=== PATIENT | male | born 1945 | race Caucasian/White ===

== ENCOUNTER 2019-08-26 06:47 | Day surgery (SDC) | payer MEDICARE, OTHER ==
[~2019-08-26 06:47] MED LIST: Lactated Ringers 1,000 ML IV SCH; Sodium Chloride 0.9% 10 ML Syringe FLUSH PRN
[2019-08-26] MEDS ORDERED: Propofol 200 MG/20 ML SDV IV ONE (06:48)
[2019-08-26] MEDS ORDERED: Lidocaine 2% 5 ML SDV INJECT ONE (06:48)
--- NOTE | 2019-08-26 08:46 | PCM.OPNOTE ---
- General Post-Op/Procedure Note Date of Surgery/Procedure: 08/26/19 Operative Procedure(s): EGD with Biopsy Findings: Mild inflammation of gastric antrum Normal appearing esophagus Pre Op Diagnosis: Abnormal esophagus on CT Scan Post-Op Diagnosis: Gastritis Anesthesia Technique: MAC Primary Surgeon: Gordon Franco Pathology: Biopsies of gastric antrum and esophagus EBL in mLs: 2 Complications: None Condition: Good
[2019-08-26 09:15] VITALS: BP 134/79; PULSE 62
--- NOTE | 2019-08-26 10:02 | HP ---
ADMISSION DATE: 08/26/2019 HISTORY OF PRESENT ILLNESS: This 74-year-old male presents today for upper endoscopy. He recently underwent a CT scan of the chest as part of a cardiac workup. This scan was interpreted as showing possible thickening of the upper portion of the wall of his esophagus. It is for this reason that he comes for a diagnostic upper endoscopy. The patient denies any pain in the throat or chest. He has not had any recent change in his voice nor is he having any difficulty breathing. He does not feel any symptoms of dysphagia nor does he have any heartburn. The patient does not require use of any acid blocking medication. PAST MEDICAL HISTORY: Does include a history of cardiac disease including valvular cardiac disease, but his only routine prescription medication is lisinopril. The patient also does take low-dose aspirin. ALLERGIES: He is allergic to bees, but no medications. PAST SURGICAL HISTORY: He has had previous surgery including tonsillectomy, colonoscopy, and joint replacement surgery. He has not required any cardiac procedures. FAMILY HISTORY: Negative for any known esophageal disease or esophageal cancer. SYSTEM REVIEW: Notes the patient has recently been feeling well with no difficulty breathing or chest pain and no change in appetite. He also denies any abdominal pain. PHYSICAL EXAMINATION: VITAL SIGNS: Temperature is 97.5, pulse 72, blood pressure is 144/65. GENERAL: The patient is alert adult male. He is in no acute distress. HEENT: Head is normocephalic. NECK: No cervical masses are noted. CHEST: He has no tenderness to palpation of the anterior chest wall. No masses are identified. HEART: Regular. LUNGS: Clear. ABDOMEN: Soft, nontender. No palpable masses noted. IMPRESSION: Possible esophageal wall thickening on CT scan. PLAN: Upper endoscopy. INFORMED CONSENT: I have discussed the proposed upper endoscopy with the patient, reviewed the proposed procedure. He agrees to proceed accepting risks. /[id number]/KRISTIN
--- NOTE | 2019-08-26 10:22 | OR ---
DATE OF OPERATION: 08/26/2019 SURGEON: Gordon Franco MD PREOPERATIVE DIAGNOSIS: Abnormal esophagus on CT scan. POSTOPERATIVE DIAGNOSIS: Gastritis and normal esophagus. OPERATION PERFORMED: Esophagogastroduodenoscopy with biopsy. INDICATIONS FOR SURGERY: This 74-year-old male underwent a CT scan of the chest for an unrelated problem and was noted to have findings consistent with thickening of the wall of the upper esophagus. Even though the patient is asymptomatic, diagnostic upper endoscopy is planned. FINDINGS: The mucosa of the esophagus appeared normal throughout its entire length. There was no indication of intrinsic or extrinsic mass identified. The Z-line was distinct. The gastric mucosa did reveal some hyperemia in the antrum. No ulcer was seen. The remainder of the gastric mucosa was normal. The duodenum appeared normal. PROCEDURE IN DETAIL: The patient was taken to the procedure room. He was given intravenous sedation, and with him in the left lateral decubitus position, the gastroscope was advanced through a mouth guard into the oral cavity. Under direct visualization, the scope was then carefully advanced through the oropharynx and then into the esophagus. The scope was slowly advanced through the esophagus, stomach, and into the duodenum where examination to the third portion was performed. The first, second, and third portions of the duodenum were carefully and fully examined. The scope was then withdrawn back into the stomach, where full examination including retroflexed examination of the fundus was performed. Biopsies of the antrum were taken to rule out H. pylori. The scope was withdrawn back to the GE junction and also the esophagus was carefully re-examined. On withdrawal of the scope, random biopsies of the upper esophagus were taken. The scope was then removed, and with no complication, the procedure was terminated and the patient was taken from the procedure room. ESTIMATED BLOOD LOSS: 2 mL. COMPLICATIONS: None. PROGNOSIS: Good. /[id number]/KRISTIN
== END 2019-08-26 09:38 | disposition home or self-care (01) ==
LOC: FB.SDS 06:47
PROVIDERS: ATTEND Surgery
DX: K29.50 Unspecified chronic gastritis without bleeding (principal); K22.8 Other specified diseases of esophagus; I10 Essential (primary) hypertension; I77.819 Aortic ectasia, unspecified site; Q21.0 Ventricular septal defect; Z98.890 Other specified postprocedural states; Z79.82 Long term (current) use of aspirin; Z79.899 Other long term (current) drug therapy; Z85.46 Personal history of malignant neoplasm of prostate
CPT/HCPCS: 00731-QZ; 88305; 88342; J2001; J2704; J7120